=== PATIENT | male | born 1980 | race Caucasian/White ===

== ENCOUNTER 2020-04-29 00:05 | Observation (INO) | payer SELFPAY ==
[2020-04-29] MEDS ORDERED: Sodium Chloride 0.9% 2.5 ML Syringe FLUSH PRN (00:14)
[2020-04-29] MEDS ORDERED: Alum Hydrox/Mag Hydrox/Simeth 15 ML, Metoclopramide 5 MG, Lidocaine 2% 5 ML PO ONE ×3 (00:14)
[2020-04-29] MEDS ORDERED: Sodium Chloride 0.9% 10 ML Syringe FLUSH PRN (00:14)
[2020-04-29] MEDS ORDERED: Sodium Chloride 0.9% 1,000 ML IV ONE (00:14)
[2020-04-29] MEDS ORDERED: Pantoprazole 40 MG in Sodium Chloride 0.9% 20 ML IVPUSH ONE (00:17)
[2020-04-29] MEDS ORDERED: Ondansetron 4 MG/2 ML SDV IVPUSH ONE (00:17)
[2020-04-29] MEDS ORDERED: Ondansetron 4 MG/2 ML SDV ONE (00:21)
--- NOTE | 2020-04-29 00:28 | EDM.PDOC ---
ED HPI GENERAL MEDICAL PROBLEM - General Chief Complaint: Chest Pain Stated Complaint: ABDOMINAL PAIN Time Seen by Provider: 04/29/20 00:08 Source of Information: Reports: Patient, EMS History Limitations: Reports: No Limitations - History of Present Illness INITIAL COMMENTS - FREE TEXT/NARRATIVE: 39-year-old male h/o Crohn's and bilateral hip replacement presents with acute onset epigastric burning pain 2 hours prior to arrival. He drank a beer before that. Pain is described as burning, constant, severe, with radiation up to his throat. He denies fever, chills, cough. ROS: A 10-point review of systems, other than pertinent positives and negatives as stated per HPI, is otherwise negative PHYSICAL EXAM General: AOx4, GCS = 15, severe distress HEENT: dry mucous membrane Neck: supple, no meningismus, no Kernig or Brudzinski Cardiac: S1S2 RRR Respiratory: CTAB, no crackles or rales, no wheezing Abdomen: Soft, epigastric ttp, no rebound or guarding, nondistended, no pulsatile mass. Back: nontender Musculoskeletal: NVI distally, no deformity Neuro: No focal deficits. MEDICAL DECISION MAKING: I reviewed the patients past medical records, lab and radiographic findings. I discussed the case with family members. My differential diagnosis included: gastritis, pancreatitis, ACS, SBO. Onset: Today Epigastric Pain Score (Numeric/FACES): 8 - Related Data Allergies Allergy/AdvReac Type Severity Reaction Status Date / Time Penicillins Allergy Hives Verified 04/29/20 00:17 Home Meds: Home Meds . [No Known Home Meds] 04/29/20 [History] ED ROS GENERAL - Review of Systems Review Of Systems: See Below (see dictation) ED EXAM, GENERAL - Physical Exam Exam: See Below (see dictation) General Appearance: Alert, Severe Distress EKG INTERPRETATION EKG Interpretation Comments: 59 Bpm, NSR, normal QRS interval, no STEMI. EKG and rhythm strip interpreted by me at 0008 Course - Vital Signs Last Recorded V/S: Last Vital Signs Temp 97.9 F 04/29/20 02:07 Pulse 69 04/29/20 02:50 Resp 14 04/29/20 02:50 BP 111/61 04/29/20 02:50 Pulse Ox 96 04/29/20 02:50 - Orders/Labs/Meds Orders: Active Orders 24 hr Category Date Time Status Admission Status [Patient Status] [ADT] Stat ADT 04/29/20 03:07 Active Cardiac Monitoring [RC] . DIRECTED Care 04/29/20 00:14 Active EKG Documentation Completion [RC] STAT Care 04/29/20 00:14 Active Gastrointestinal Tube Mgmt [RC] ASDIRECTED Care 04/29/20 03:09 Active Oxygen Therapy [RC] ASDIRECTED Care 04/29/20 00:14 Active Pulse Oximetry [RC] ASDIRECTED Care 04/29/20 00:14 Active Sodium Chloride 0.9% [Saline Flush] Med 04/29/20 00:14 Active 10 ml FLUSH ASDIRECTED PRN Sodium Chloride 0.9% [Saline Flush] Med 04/29/20 00:14 Active 2.5 ml FLUSH ASDIRECTED PRN NG [Nasogastric Orogastric Tube Insertion] [OM.PC] Stat Oth 04/29/20 03:08 Ordered Saline Lock Insert [OM.PC] Stat Oth 04/29/20 00:14 Ordered Medication Orders Sodium Chloride (Saline Flush) 10 ml FLUSH ASDIRECTED PRN PRN Reason: Keep Vein Open Sodium Chloride (Saline Flush) 2.5 ml FLUSH ASDIRECTED PRN PRN Reason: Keep Vein Open Labs: Laboratory Tests 04/29/20 04/29/20 04/29/20 Range/Units 00:28 00:28 00:28 WBC 13.42 H (4.0-11.0) K/uL RBC 4.72 (4.50-5.90) M/uL Hgb 14.6 (13.0-17.0) g/dL Hct 42.3 (38.0-50.0) % MCV 89.6 (80.0-98.0) fL MCH 30.9 (27.0-32.0) pg MCHC 34.5 (31.0-37.0) g/dL RDW Std Deviation 40.7 (28.0-62.0) fl RDW Coeff of Carlton 13 (11.0-15.0) % Plt Count 278 (150-400) K/uL MPV 9.50 (7.40-12.00) fL Neut % (Auto) 84.6 H (48.0-80.0) % Lymph % (Auto) 10.6 L (16.0-40.0) % [place] % (Auto) 3.4 (0.0-15.0) % Eos % (Auto) 1.0 (0.0-7.0) % Baso % (Auto) 0.4 (0.0-1.5) % Neut # (Auto) 11.3 H (1.4-5.7) K/uL Lymph # (Auto) 1.4 (0.6-2.4) K/uL [place] # (Auto) 0.5 (0.0-0.8) K/uL Eos # (Auto) 0.1 (0.0-0.7) K/uL Baso # (Auto) 0.1 (0.0-0.1) K/uL INR 1.03 Lactate (0.20-2.00) mmol/L Sodium 137 (136-148) mmol/L Potassium 3.7 (3.5-5.1) mmol/L Chloride 98 (98-107) mmol/L Carbon Dioxide 25.8 (21.0-32.0) mmol/L BUN 8 (7.0-18.0) mg/dL Creatinine 0.9 (0.8-1.3) mg/dL Est Cr Clr Drug Dosing TNP Estimated GFR (MDRD) > 60.0 ml/min Glucose 100 (74-106) mg/dL Calcium 8.5 (8.5-10.1) mg/dL Total Bilirubin 0.5 (0.2-1.0) mg/dL AST 18 (15-37) IU/L ALT 27 (14-63) IU/L Alkaline Phosphatase 71 (46-116) U/L Troponin I <0.050 (0.000-0.056) ng/mL Total Protein 7.6 (6.4-8.2) g/dL Albumin 4.4 (3.4-5.0) g/dL Globulin 3.2 (2.6-4.0) g/dL Albumin/Globulin Ratio 1.4 (0.9-1.6) Lipase 175 (73-393) U/L 04/29/20 Range/Units 00:28 WBC (4.0-11.0) K/uL RBC (4.50-5.90) M/uL Hgb (13.0-17.0) g/dL Hct (38.0-50.0) % MCV (80.0-98.0) fL MCH (27.0-32.0) pg MCHC (31.0-37.0) g/dL RDW Std Deviation (28.0-62.0) fl RDW Coeff of Carl[place] (11.0-15.0) % Plt Count (150-400) K/uL MPV (7.40-12.00) fL Neut % (Auto) (48.0-80.0) % Lymph % (Auto) (16.0-40.0) % [place] % (Auto) (0.0-15.0) % Eos % (Auto) (0.0-7.0) % Baso % (Auto) (0.0-1.5) % Neut # (Auto) (1.4-5.7) K/uL Lymph # (Auto) (0.6-2.4) K/uL [place] # (Auto) (0.0-0.8) K/uL Eos # (Auto) (0.0-0.7) K/uL Baso # (Auto) (0.0-0.1) K/uL INR Lactate 2.0 (0.20-2.00) mmol/L Sodium (136-148) mmol/L Potassium (3.5-5.1) mmol/L Chloride (98-107) mmol/L Carbon Dioxide (21.0-32.0) mmol/L BUN (7.0-18.0) mg/dL Creatinine (0.8-1.3) mg/dL Est Cr Clr Drug Dosing Estimated GFR (MDRD) ml/min Glucose (74-106) mg/dL Calcium (8.5-10.1) mg/dL Total Bilirubin (0.2-1.0) mg/dL AST (15-37) IU/L ALT (14-63) IU/L Alkaline Phosphatase (46-116) U/L Troponin I (0.000-0.056) ng/mL Total Protein (6.4-8.2) g/dL Albumin (3.4-5.0) g/dL Globulin (2.6-4.0) g/dL Albumin/Globulin Ratio (0.9-1.6) Lipase (73-393) U/L Meds: Medications Generic Name Dose Route Start Last Admin Trade Name Freq PRN Reason Stop Dose Admin Sodium Chloride 10 ml 04/29/20 00:14 Saline Flush FLUSH ASDIRECTED PRN Keep Vein Open Sodium Chloride 2.5 ml 04/29/20 00:14 Saline Flush FLUSH ASDIRECTED PRN Keep Vein Open Discontinued Medications Generic Name Dose Route Start Last Admin Trade Name Freq PRN Reason Stop Dose Admin Al Hydroxide/Mg Hydroxide 15 0 ml 04/29/20 00:14 04/29/20 00:31 ml/ Metoclopramide HCl 5 mg/ PO 04/29/20 00:15 1 each Lidocaine HCl 5 ml ONETIME ONE Administration Dicyclomine HCl 20 mg 04/29/20 01:02 04/29/20 01:59 Bentyl PO 04/29/20 01:03 20 mg ONETIME STA Administration Haloperidol Lactate 5 mg 04/29/20 01:15 04/29/20 02:00 Haldol IM 04/29/20 01:16 5 mg ONETIME ONE Administration Sodium Chloride 1,000 mls @ 999 mls/hr 04/29/20 00:14 04/29/20 00:28 Normal Saline IV 04/29/20 01:14 999 mls/hr BOLUS ONE Administration Pantoprazole Sodium 40 mg/ 20 mls @ 420 mls/hr 04/29/20 00:17 04/29/20 00:31 Sodium Chloride IVPUSH 04/29/20 00:19 420 mls/hr ONETIME ONE Administration Iopamidol 100 ml 04/29/20 01:44 04/29/20 01:44 Isovue-370 (76%) IVPUSH 04/29/20 01:45 100 ml ONETIME ONE Administration Morphine Sulfate 4 mg 04/29/20 00:33 04/29/20 00:43 Morphine IVPUSH 04/29/20 00:34 4 mg ONETIME ONE Administration Morphine Sulfate 4 mg 04/29/20 01:02 04/29/20 01:59 Morphine IVPUSH 04/29/20 01:03 4 mg ONETIME ONE Administration Ondansetron HCl 4 mg 04/29/20 00:17 04/29/20 00:30 Zofran IVPUSH 04/29/20 00:18 4 mg ONETIME ONE Administration Ondansetron HCl Confirm 04/29/20 00:21 04/29/20 00:32 Zofran Administered 04/29/20 00:22 Not Given Dose 4 mg .ROUTE .[facility] ONE - Re-Assessments/Exams Free Text/Narrative Re-Assessment/Exam: 04/29/20 00:32 Ordered IV fluids, Protonix 40 mg, GI cocktail 04/29/20 01:05 Pain is unchanged, will give IV morphine, Bentyl. Will perform CT with contrast. 04/29/20 02:[address] Kayden Vela regarding CT findings concerning for midgut malrotation, he will come see the patient. 04/29/20 03:11 Dr. Kayden Vela assessed patient in the ER, he will admit to observation, he recommends NG tube. Departure - Departure Time of Disposition: 03:12 Disposition: Refer to Observation Condition: Good Clinical Impression: Malrotation of intestine Referrals: PCP,None [Primary Care Provider] - Forms: ED Department Discharge Additional Instructions: The following information is given to patients seen in the emergency department who are being discharged to home. This information is to outline your options for follow-up care. We provide all patients seen in our emergency department with a follow-up referral. The need for follow-up, as well as the timing and circumstances, are variable depending upon the specifics of your emergency department visit. If you don't have a primary care physician on staff, we will provide you with a referral. We always advise you to contact your personal physician following an emergency department visit to inform them of the circumstance of the visit and for follow-up with them and/or the need for any referrals to a consulting specialist. The emergency department will also refer you to a specialist when appropriate. This referral assures that you have the opportunity for follow-up care with a specialist. All of these measure are taken in an effort to provide you with optimal care, which includes your follow-up. Under all circumstances we always encourage you to contact your private physician who remains a resource for coordinating your care. When calling for follow-up care, please make the office aware that this follow-up is from your recent emergency room visit. If for any reason you are refused follow-up, please contact the [facility] Emergency Department at and asked to speak to the emergency department charge nurse. If you do not have a primary care doctor, please follow up with the clinics below within 3-5 days. [facility] - Primary [facility] [address] [place] [id number] [facility] [address] [place] [id number] Critical Care Note - Critical Care Note Comments: Critical Care: The high probability of sudden, clinically significant deterioration in the patient's condition required the highest level of my preparedness to intervene urgently. The services I provided to this patient were to treat and/or prevent clinically significant deterioration. Services included the following: chart data review, reviewing nursing notes and/or old charts, documentation time, independent beauty consultant collaboration regarding findings and treatment options, medication orders and management, direct patient care, vital sign assessments and ordering, interpreting and reviewing diagnostic studies/lab tests. Aggregate critical care time includes only time during which I was engaged in work directly related to the patient's care, as described above, whether at the bedside or elsewhere in the Emergency Department. It did not include time spent performing other reported procedures or the services of residents, students, nurses or physician assistants. Frequent interventions and/or frequent repeat evaluations were required as well as counseling and coordination of care regarding prognosis, treatments, and discussions with patient, staff and consultants. Critical Care (excluding other procedures): 40 minutes Sepsis Event Note (ED) - Focused Exam Vital Signs: Vital Signs Temp Pulse Resp BP Pulse Ox Pulse Ox 04/29/20 02:50 69 14 111/61 96 04/29/20 02:07 97.9 F 74 18 138/87 98 04/29/20 01:56 66 16 131/83 94 L 04/29/20 00:14 98 - My Orders Last 24 Hours: My Active Orders 04/29/20 00:14 Cardiac Monitoring [RC] . DIRECTED EKG Documentation Completion [RC] STAT Oxygen Therapy [RC] ASDIRECTED Pulse Oximetry [RC] ASDIRECTED Sodium Chloride 0.9% [Saline Flush] 10 ml FLUSH ASDIRECTED PRN Sodium Chloride 0.9% [Saline Flush] 2.5 ml FLUSH ASDIRECTED PRN Saline Lock Insert [OM.PC] Stat 04/29/20 03:07 Admission Status [Patient Status] [ADT] Stat - Assessment/Plan Last 24 Hours: My Active Orders 04/29/20 00:14 Cardiac Monitoring [RC] . DIRECTED EKG Documentation Completion [RC] STAT Oxygen Therapy [RC] ASDIRECTED Pulse Oximetry [RC] ASDIRECTED Sodium Chloride 0.9% [Saline Flush] 10 ml FLUSH ASDIRECTED PRN Sodium Chloride 0.9% [Saline Flush] 2.5 ml FLUSH ASDIRECTED PRN Saline Lock Insert [OM.PC] Stat 04/29/20 03:07 Admission Status [Patient Status] [ADT] Stat
[2020-04-29] MEDS ORDERED: Morphine 4 MG/ML Syringe IVPUSH ONE ×2 (00:33→01:02)
[2020-04-29 00:57] LABS: BLOOD UREA NITROGEN,BUN 8 mg/dL (7.0-18.0); CARBON DIOXIDE,CO2 25.8 mmol/L (21.0-32.0); CHLORIDE,CL 98 mmol/L (98-107); GLUCOSE RANDOM 100 mg/dL (74-106); LIPASE 175 U/L (73-393); POTASSIUM,K 3.7 mmol/L (3.5-5.1); SODIUM,NA 137 mmol/L (136-148)
[2020-04-29] MEDS ORDERED: Dicyclomine 10 MG Cap PO STA (01:02)
--- NOTE | 2020-04-29 01:05 | CR ---
INDICATION: CHEST PAIN TECHNIQUE: Chest 1 view. COMPARISON: None. FINDINGS: Cardiovascular and mediastinum: Heart size and vasculature are normal in caliber and appearance. Mediastinum is within normal limits. Lungs and pleural space: Lungs are clear. No sign of infiltrate or mass. No sign of pleural effusion. No pneumothorax. Bones and soft tissues: No significant findings. IMPRESSION: Unremarkable chest. Dictated by: Smith Torrez MD @ 04/29/2020 01:03:54 (Electronically Signed)
[2020-04-29] MEDS ORDERED: Haloperidol Lactate 5 MG/ML SDV IM ONE (01:15)
[2020-04-29] MEDS ORDERED: Iopamidol 755 Mg/ML 100 ML Bottle IVPUSH ONE (01:44)
--- NOTE | 2020-04-29 02:05 | CT ---
Indication: Abdominal pain Technique: Contrast enhanced axial CT imaging through the abdomen and pelvis. 100 mL Isovue 370 contrast agent was administered intravenously. Sagittal and coronal reconstructions are provided. Comparison: None Findings: There is no significant abnormality of the liver, gallbladder, spleen, pancreas, adrenal glands, and kidneys. The portal vein is patent. There is normal caliber of the abdominal aorta. There is no abdominal lymphadenopathy. Note is made of location of the gastroduodenal junction and pancreatic head to the left of midline, suggesting midgut malrotation. There are no abnormally dilated small bowel loops. The appendix is not visualized. There is no bowel wall thickening. The colon is unremarkable. No inflammatory changes are demonstrated in the mesentery. There is no free intraperitoneal fluid or air. Bilateral hip arthroplasties are noted. Streak artifact somewhat limits assessment of the pelvis. The included lung bases are clear. Impression: 1. No acute process demonstrated in the abdomen and pelvis. 2. Findings suggestive of midgut malrotation. No evidence of volvulus. 3. Nonvisualized appendix. Please note that all CT scans at this facility use dose modulation, iterative reconstruction, and/or weight-based dosing when appropriate to reduce radiation dose to as low as reasonably achievable. Dictated by Suzanne Pichardo MD @ Apr 29 2020 1:55AM Signed by Dr. Suzanne Pichardo @ Apr 29 2020 2:04AM
[2020-04-29] MEDS ORDERED: Benzocaine 20% Topical Spray UD MUCMEM ONE (03:11)
--- NOTE | 2020-04-29 03:25 | PCM.SN.2 ---
- Free Text/Narrative Note: pt seen, chart reviewed; abd pain, had pain med or resolving; kept observation, insert ngt, repeat blood work; [id number]
[2020-04-29] MEDS ORDERED: Morphine 2 MG/ML Syringe IVPUSH PRN (03:27)
[2020-04-29] MEDS ORDERED: Acetaminophen 325 MG Tab PO PRN (03:28)
[2020-04-29] MEDS ORDERED: Ondansetron 4 MG/2 ML SDV IVPUSH PRN (03:28)
[2020-04-29] MEDS ORDERED: Lactated Ringers 1,000 ML IV SCH (03:30)
--- NOTE | 2020-04-29 04:03 | CR ---
Indication: Nasogastric tube insertion Technique: Single-view of the abdomen Comparison: Abdomen pelvis CT 04/29/2020 Findings/Impression: Distal end of gastric tube projects in the left upper quadrant, in the expected location of the stomach. Dictated by Suzanne Pichardo MD @ Apr 29 2020 4:00AM Signed by Dr. Suzanne Pichardo @ Apr 29 2020 4:02AM
[2020-04-29] MEDS ORDERED: Pantoprazole 40 MG in Sodium Chloride 0.9% 10 ML IV SCH (07:30)
[2020-04-29] MEDS ORDERED: Phenol 1.4% Oral Spray 177 ML Bottle MUCMEM PRN (08:21)
[2020-04-29] MEDS ORDERED: Benzocaine/Cetylpyridinium/Menthol Lozenge MUCMEM PRN (08:24)
[2020-04-29 10:17] LABS: BLOOD UREA NITROGEN,BUN 8 mg/dL (7.0-18.0); CARBON DIOXIDE,CO2 28.5 mmol/L (21.0-32.0); CHLORIDE,CL 102 mmol/L (98-107); GLUCOSE RANDOM 82 mg/dL (74-106); POTASSIUM,K 4.3 mmol/L (3.5-5.1); SODIUM,NA 138 mmol/L (136-148)
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
--- NOTE | 2020-04-29 13:08 | PCM.SURGPN ---
- General Info Date of Service: 04/29/20 - Review of Systems General: Reports: No Symptoms (abd pain completely resolved, and is hungry) - Patient Data Vitals - Most Recent: Last Vital Signs Temp 98.2 F 04/29/20 07:30 Pulse 53 L 04/29/20 07:30 Resp 16 04/29/20 07:30 BP 104/53 L 04/29/20 07:30 Pulse Ox 99 04/29/20 07:30 Weight - Most Recent: 131 lb 6.328 oz Lab Results Last 24 Hrs: Laboratory Results - last 24 hr 04/29/20 04/29/20 04/29/20 Range/Units 00:28 00:28 00:28 WBC 13.42 H (4.0-11.0) K/uL RBC 4.72 (4.50-5.90) M/uL Hgb 14.6 (13.0-17.0) g/dL Hct 42.3 (38.0-50.0) % MCV 89.6 (80.0-98.0) fL MCH 30.9 (27.0-32.0) pg MCHC 34.5 (31.0-37.0) g/dL RDW Std Deviation 40.7 (28.0-62.0) fl RDW Coeff of Carlton 13 (11.0-15.0) % Plt Count 278 (150-400) K/uL MPV 9.50 (7.40-12.00) fL Neut % (Auto) 84.6 H (48.0-80.0) % Lymph % (Auto) 10.6 L (16.0-40.0) % R[place] % (Auto) 3.4 (0.0-15.0) % Eos % (Auto) 1.0 (0.0-7.0) % Baso % (Auto) 0.4 (0.0-1.5) % Neut # (Auto) 11.3 H (1.4-5.7) K/uL Lymph # (Auto) 1.4 (0.6-2.4) K/uL R[place]els # (Auto) 0.5 (0.0-0.8) K/uL Eos # (Auto) 0.1 (0.0-0.7) K/uL Baso # (Auto) 0.1 (0.0-0.1) K/uL Nucleated RBC % /100WBC Nucleated RBCs # K/uL INR 1.03 Lactate (0.20-2.00) mmol/L Sodium 137 (136-148) mmol/L Potassium 3.7 (3.5-5.1) mmol/L Chloride 98 (98-107) mmol/L Carbon Dioxide 25.8 (21.0-32.0) mmol/L BUN 8 (7.0-18.0) mg/dL Creatinine 0.9 (0.8-1.3) mg/dL Est Cr Clr Drug Dosing TNP Estimated GFR (MDRD) > 60.0 ml/min Glucose 100 (74-106) mg/dL Calcium 8.5 (8.5-10.1) mg/dL Total Bilirubin 0.5 (0.2-1.0) mg/dL AST 18 (15-37) IU/L ALT 27 (14-63) IU/L Alkaline Phosphatase 71 (46-116) U/L Troponin I <0.050 (0.000-0.056) ng/mL Total Protein 7.6 (6.4-8.2) g/dL Albumin 4.4 (3.4-5.0) g/dL Globulin 3.2 (2.6-4.0) g/dL Albumin/Globulin Ratio 1.4 (0.9-1.6) Lipase 175 (73-393) U/L 04/29/20 04/29/20 04/29/20 Range/Units 00:28 09:40 09:40 WBC 9.36 (4.0-11.0) K/uL RBC 4.70 (4.50-5.90) M/uL Hgb 14.4 (13.0-17.0) g/dL Hct 43.1 (38.0-50.0) % MCV 91.7 (80.0-98.0) fL MCH 30.6 (27.0-32.0) pg MCHC 33.4 (31.0-37.0) g/dL RDW Std Deviation 44.3 (28.0-62.0) fl RDW Coeff of Carlton 13 (11.0-15.0) % Plt Count 261 (150-400) K/uL MPV 10.00 (7.40-12.00) fL Neut % (Auto) 61.8 (48.0-80.0) % Lymph % (Auto) 24.5 (16.0-40.0) % Runnels % (Auto) 10.6 (0.0-15.0) % Eos % (Auto) 2.5 (0.0-7.0) % Baso % (Auto) 0.6 (0.0-1.5) % Neut # (Auto) 5.8 H (1.4-5.7) K/uL Lymph # (Auto) 2.3 (0.6-2.4) K/uL R[place]els # (Auto) 1.0 H (0.0-0.8) K/uL Eos # (Auto) 0.2 (0.0-0.7) K/uL Baso # (Auto) 0.1 (0.0-0.1) K/uL Nucleated RBC % 0.0 /100WBC Nucleated RBCs # 0 K/uL INR Lactate 2.0 (0.20-2.00) mmol/L Sodium 138 (136-148) mmol/L Potassium 4.3 (3.5-5.1) mmol/L Chloride 102 (98-107) mmol/L Carbon Dioxide 28.5 (21.0-32.0) mmol/L BUN 8 (7.0-18.0) mg/dL Creatinine 0.9 (0.8-1.3) mg/dL Est Cr Clr Drug Dosing 94.73 Estimated GFR (MDRD) > 60.0 ml/min Glucose 82 (74-106) mg/dL Calcium 8.2 L (8.5-10.1) mg/dL Total Bilirubin 0.9 (0.2-1.0) mg/dL AST 17 (15-37) IU/L ALT 24 (14-63) IU/L Alkaline Phosphatase 65 (46-116) U/L Troponin I (0.000-0.056) ng/mL Total Protein 6.7 (6.4-8.2) g/dL Albumin 3.8 (3.4-5.0) g/dL Globulin 2.9 (2.6-4.0) g/dL Albumin/Globulin Ratio 1.3 (0.9-1.6) Lipase (73-393) U/L Med Orders - Current: Current Medications Acetaminophen (Tylenol) 650 mg PO Q6H PRN PRN Reason: Pain Benzocaine/Menthol (Cepacol Sore Throat) 1 lozenge MUCMEM Q2HR PRN PRN Reason: Sore Throat Last Admin: 04/29/20 09:56 Dose: 1 lozenge Documented by: Pantoprazole Sodium 40 mg/ (Sodium Chloride) 10 mls @ 300 mls/hr IV ACBREAKFAST GENE Last Admin: 04/29/20 07:27 Dose: 300 mls/hr Documented by: Lactated Ringer's (Ringers, Lactated) 1,000 mls @ 125 mls/hr IV ASDIRECTED GENE Last Admin: 04/29/20 04:31 Dose: 125 mls/hr Documented by: Morphine Sulfate (Morphine) 2 mg IVPUSH Q6H PRN PRN Reason: Breakthrough Pain Last Admin: 04/29/20 11:40 Dose: 2 mg Documented by: Ondansetron HCl (Zofran) 4 mg IVPUSH Q8H PRN PRN Reason: Nausea/Vomiting Phenol/Menthol (Chloraseptic Throat [place]) 1 ml MUCMEM Q2H PRN PRN Reason: Sore Throat Last Admin: 04/29/20 09:55 Dose: 1 spray Documented by: Sodium Chloride (Saline Flush) 10 ml FLUSH ASDIRECTED PRN PRN Reason: Keep Vein Open Sodium Chloride (Saline Flush) 2.5 ml FLUSH ASDIRECTED PRN PRN Reason: Keep Vein Open Discontinued Medications Benzocaine (Hurricaine One 20%) 2 each MUCMEM ONETIME ONE Stop: 04/29/20 03:12 Last Admin: 04/29/20 03:16 Dose: 2 each Documented by: Al Hydroxide/Mg Hydroxide 15 ml/ Metoclopramide HCl 5 mg/Lidocaine HCl 5 ml 0 ml PO ONETIME ONE Stop: 04/29/20 00:15 Last Admin: 04/29/20 00:31 Dose: 1 each Documented by: Dicyclomine HCl (Bentyl) 20 mg PO ONETIME STA Stop: 04/29/20 01:03 Last Admin: 04/29/20 01:59 Dose: 20 mg Documented by: Haloperidol Lactate (Haldol) 5 mg IM ONETIME ONE Stop: 04/29/20 01:16 Last Admin: 04/29/20 02:00 Dose: 5 mg Documented by: Sodium Chloride (Normal Saline) 1,000 mls @ 999 mls/hr IV BOLUS ONE Stop: 04/29/20 01:14 Last Admin: 04/29/20 00:28 Dose: 999 mls/hr Documented by: Pantoprazole Sodium 40 mg/ (Sodium Chloride) 20 mls @ 420 mls/hr IVPUSH ONETIME ONE Stop: 04/29/20 00:19 Last Admin: 04/29/20 00:31 Dose: 420 mls/hr Documented by: Iopamidol (Isovue-370 (76%)) 100 ml IVPUSH ONETIME ONE Stop: 04/29/20 01:45 Last Admin: 04/29/20 01:44 Dose: 100 ml Documented by: Morphine Sulfate (Morphine) 4 mg IVPUSH ONETIME ONE Stop: 04/29/20 00:34 Last Admin: 04/29/20 00:43 Dose: 4 mg Documented by: Morphine Sulfate (Morphine) 4 mg IVPUSH ONETIME ONE Stop: 04/29/20 01:03 Last Admin: 04/29/20 01:59 Dose: 4 mg Documented by: Ondansetron HCl (Zofran) 4 mg IVPUSH ONETIME ONE Stop: 04/29/20 00:18 Last Admin: 04/29/20 00:30 Dose: 4 mg Documented by: Ondansetron HCl (Zofran) Confirm Administered Dose 4 mg .ROUTE .STK-MED ONE Stop: 04/29/20 00:22 Last Admin: 04/29/20 00:32 Dose: Not Given Documented by: Sepsis Event Note - Evaluation Sepsis Screening Result: No Definite Risk - Focused Exam Vital Signs: Vital Signs Temp Pulse Resp BP Pulse Ox 04/29/20 07:30 98.2 F 53 L 16 104/53 L 99 04/29/20 04:26 98.1 F 62 16 102/61 98 04/29/20 03:31 81 16 103/63 96 04/29/20 02:50 69 14 111/61 96 04/29/20 02:07 97.9 F 74 18 138/87 98 04/29/20 01:56 66 16 131/83 94 L Date Exam was Performed: 04/29/20 Time Exam was Performed: 13:07 - Problem List Review Problem List Initiated/Reviewed/Updated: Yes - My Orders Last 24 Hours: Active Orders 24 hr Category Date Time Status Admission Status [Patient Status] [ADT] Routine ADT 04/29/20 03:26 Active Admission Status [Patient Status] [ADT] Stat ADT 04/29/20 03:07 Active Cardiac Monitoring [RC] . DIRECTED Care 04/29/20 00:14 Active Communication Order [RC] ROUTINE Care 04/29/20 13:04 Ordered Gastrointestinal Tube Mgmt [RC] ASDIRECTED Care 04/29/20 03:09 Active Oxygen Therapy [RC] ASDIRECTED Care 04/29/20 00:14 Active Pulse Oximetry [RC] ASDIRECTED Care 04/29/20 00:14 Active Ready for Discharge [RC] PER UNIT ROUTINE Care 04/29/20 13:07 Ordered Full Liquid Diet [DIET] Diet 04/29/20 Dinner Ordered NPO Now [Nothing per Oral Now Diet] [DIET] Diet 04/29/20 Breakfast Active Acetaminophen [Tylenol] Med 04/29/20 03:28 Active 650 mg PO Q6H PRN Benzocaine/Cetylpyrd/Menthol [Cepacol Sore Throat] Med 04/29/20 08:24 Active 1 lozenge MUCMEM Q2HR PRN Lactated Ringers [Ringers, Lactated] 1,000 ml Med 04/29/20 03:30 Active IV ASDIRECTED Morphine Sulfate [Morphine] Med 04/29/20 03:27 Active 2 mg IVPUSH Q6H PRN Ondansetron [Zofran] Med 04/29/20 03:28 Active 4 mg IVPUSH Q8H PRN Pantoprazole [ProTONIX IV] 40 mg Med 04/29/20 07:30 Active Sodium Chloride 0.9% [Normal Saline] 10 ml IV ACBREAKFAST Phenol [Chloraseptic Throat [place]] Med 04/29/20 08:21 Active 1 ml MUCMEM Q2H PRN Sodium Chloride 0.9% [Saline Flush] Med 04/29/20 00:14 Active 10 ml FLUSH ASDIRECTED PRN Sodium Chloride 0.9% [Saline Flush] Med 04/29/20 00:14 Active 2.5 ml FLUSH ASDIRECTED PRN NG [Nasogastric Orogastric Tube Insertion] [OM.PC] Stat Oth 04/29/20 03:08 Ordered Saline Lock Insert [OM.PC] Stat Oth 04/29/20 00:14 Ordered Medication Orders Acetaminophen (Tylenol) 650 mg PO Q6H PRN PRN Reason: Pain Benzocaine/Menthol (Cepacol Sore Throat) 1 lozenge MUCMEM Q2HR PRN PRN Reason: Sore Throat Last Admin: 04/29/20 09:56 Dose: 1 lozenge Documented by: PROFLUC Pantoprazole Sodium 40 mg/ (Sodium Chloride) 10 mls @ 300 mls/hr IV ACBREAKFAST GENE Last Admin: 04/29/20 07:27 Dose: 300 mls/hr Documented by: DANYEL Lactated Ringer's (Ringers, Lactated) 1,000 mls @ 125 mls/hr IV ASDIRECTED GENE Last Admin: 04/29/20 04:31 Dose: 125 mls/hr Documented by: JOAQUIMDAHill Morphine Sulfate (Morphine) 2 mg IVPUSH Q6H PRN PRN Reason: Breakthrough Pain Last Admin: 04/29/20 11:40 Dose: 2 mg Documented by: PROFLUC Ondansetron HCl (Zofran) 4 mg IVPUSH Q8H PRN PRN Reason: Nausea/Vomiting Phenol/Menthol (Chloraseptic Throat [place]) 1 ml MUCMEM Q2H PRN PRN Reason: Sore Throat Last Admin: 04/29/20 09:55 Dose: 1 spray Documented by: PROFLUC Sodium Chloride (Saline Flush) 10 ml FLUSH ASDIRECTED PRN PRN Reason: Keep Vein Open Sodium Chloride (Saline Flush) 2.5 ml FLUSH ASDIRECTED PRN PRN Reason: Keep Vein Open - Assessment Assessment (Free Text/Narrative):: pain resolved; dc ngt to full liquid; if fidelia, dc home, fu 1 wk - Plan Plan (Free Text/Narrative):: pain resolved; dc ngt to full liquid; if fidelia, dc home, fu 1 wk
== END 2020-04-29 16:00 | disposition home or self-care (01) ==
LOC: MW.ED 00:05 → MW.MS 03:07
PROVIDERS: ADMIT Surgery; ATTEND Surgery
DX: Q43.3 Congenital malformations of intestinal fixation (principal); D72.829 Elevated white blood cell count, unspecified; Z88.0 Allergy status to penicillin; Z96.643 Presence of artificial hip joint, bilateral
CPT/HCPCS: 36415; 43752; 71045; 74018; 74177; 80053; 83605; 83690; 84484; 85025; 85610; 93005; 96361; 96372; 96374; 96375; 96376; 99285; A9270; C9113; J1630; J2270; J2405; J7030; J7050; J7120; Q9967; 99283; G0378